=== PATIENT | female | born 1945 | race Caucasian/White ===

== ENCOUNTER 2016-06-01 19:22 | Emergency (ER) | payer MEDICARE, OTHER ==
[2016-06-01] MEDS ORDERED: ONDANSETRON 4 MG TAB.RAPDIS PO ONE (19:31)
--- NOTE | 2016-06-01 19:31 | ER Document Report ---
ED Medical Screen (RME) - General Stated Complaint: NAUSEA,VOMITING,DIARRHEA Notes: patient is a 70 year old female p/ w since 7am. n/v/d all today no hematemesis or hematochezia patient with BRBPR due to hemorrhoids on prolia I have greeted and performed a rapid initial assessment of this patient. A comprehensive ED assessment and evaluation of the patient, analysis of test results and completion of the medical decision making process will be conducted by additional ED providers.
[2016-06-01 19:50] LABS: HEMATOCRIT 43.3 % (36.0-47.0); HEMOGLOBIN 14.2 g/dL (12.0-15.5); HGB HCT DIFFERENCE -0.7; MEAN CORPUSCULAR HEMOGLOBIN 28.3 pg (27.0-33.4); MEAN CORPUSCULAR HGB CONC 32.8 g/dL (32.0-36.0); MEAN CORPUSCULAR VOLUME 86 fl (80-97); RED BLOOD COUNT 5.02 10^6/uL (3.72-5.28); RED CELL DISTRIBUTION WIDTH 12.6 % (11.5-14.0); WHITE BLOOD COUNT 10.3 10^3/uL (4.0-10.5)
[2016-06-01] MEDS ORDERED: NORMAL SALINE 1000 ML 1,000 ML IV ONE ×2 (19:57→21:47)
[2016-06-01] MEDS ORDERED: OXYCODONE-ACETAMINOPHEN 5-325 MG TABLET PO ONE (19:57)
[2016-06-01] MEDS ORDERED: PROMETHAZINE HCL 25 MG TABLET PO ONE (19:57)
--- NOTE | 2016-06-01 19:59 | ER Document Report ---
ED GI/ - General Chief Complaint: Flu Symptoms Stated Complaint: NAUSEA,VOMITING,DIARRHEA Time seen by provider: 19:50 Notes: Patient is a 70-year-old female that comes emergency department for chief complaint of nausea, vomiting, and diarrhea that started today. She states she has had about 20 episodes of each. His blood in vomit, she states she has had a tiny amount of bright red blood in her diarrhea, she states this is common and she has known hemorrhoids. Patient denies fever. Patient has sick contacts (her daughter specifically) with similar symptoms. Patient has had colonoscopies and states these were normal. Patient denies any raw food, denies any recent antibiotics. Patient reports PMH of hemorrhoids, osteoporosis , and hemorrhoid surgery, she denies any other PMH. TRAVEL OUTSIDE OF THE [place] IN LAST 30 DAYS: No - Related Data Allergies/Adverse Reactions: amitriptyline Allergy (Verified 06/01/16 19:29) aspirin Allergy (Verified 06/01/16 21:17) azithromycin Allergy (Verified 06/01/16 19:29) Influenza Virus Vaccines Allergy (Verified 06/01/16 21:17) Penicillins Allergy (Verified 06/01/16 19:29) Sulfa (Sulfonamide Antibiotics) Allergy (Verified 06/01/16 19:29) Katec Allergy (Uncoded 06/01/16 21:17) Home Medications: Current Home Medications Denosumab [Prolia 60 mg/ml Syr 1 ml] 60 mg SUBCUT Q180D 06/01/16 [History] Past Medical History - General Information source: Patient - Social History Smoking Status: Never Smoker Drug Abuse: None Lives with: Family Family History: Reviewed & Not Pertinent Patient has suicidal ideation: No Patient has homicidal ideation: No Renal/ Medical History: Denies: Hx Peritoneal Dialysis Review of Systems - Review of Systems Constitutional: See HPI EENT: No symptoms reported Cardiovascular: No symptoms reported Respiratory: No symptoms reported Gastrointestinal: See HPI Genitourinary: No symptoms reported Female Genitourinary: No symptoms reported Musculoskeletal: No symptoms reported Skin: No symptoms reported Hematologic/Lymphatic: No symptoms reported Neurological/Psychological: No symptoms reported Physical Exam - Vital signs Vitals: Temp Pulse Resp BP Pulse Ox 98.1 F 98 16 131/57 H 97 06/01/16 19:27 06/01/16 19:27 06/01/16 19:27 06/01/16 19:27 06/01/16 19:27 Interpretation: Normal - General General appearance: Appears well, Alert In distress: None - HEENT Head: Normocephalic, Atraumatic Eyes: Normal Conjunctiva: Normal Extraocular movements intact: Yes Eyelashes: Normal Pupils: PERRL Sinus: Normal Nasal: Normal Mouth/Lips: Normal Mucous membranes: Dry - Very dry mucous membranes Pharynx: Normal Neck: Normal - Respiratory Respiratory status: No respiratory distress. No: Respiratory distress, Depressed respirations, Tachypnea Chest status: Nontender Breath sounds: Normal. No: Decreased air movement Chest palpation: Normal - Cardiovascular Rhythm: Regular. No: Tachycardia Heart sounds: Normal auscultation, S1 appreciated, S2 appreciated Murmur: No - Abdominal Inspection: Normal Distension: No distension Bowel sounds: Normal Tenderness: Tender - Mild generalized tenderness, slightly increased in the left upper and lower quadrants, nonspecific, no guarding, no rebound tenderness Organomegaly: No organomegaly - Back Back: Normal, Nontender - Extremities General upper extremity: Normal inspection, Nontender, Normal color, Normal ROM , Normal temperature General lower extremity: Normal inspection, Nontender, Normal color, Normal ROM , Normal temperature, Normal weight bearing. 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 History shows elevated BUN, very slight elevation of ALT/AST. Urinalysis shows some ketones, shows trace leukocyte esterase and shows white blood cells. Patient was not able to urinate until she was given IV fluids, patient given 2 L normal saline. After fluids, medications, patient states she feels great. Abdomen is nonspecific with only mild and generalized tenderness, low suspicion of acute abdomen. Patient has sick contacts with reported viral symptoms. Treating symptoms, discussed return precautions, patient and daughter state understanding and agreement. - Vital Signs Vital signs: Temp Pulse Resp BP Pulse Ox 98.9 F 75 18 115/55 L 96 06/01/16 23:48 06/01/16 23:48 06/01/16 23:48 06/01/16 23:48 06/01/16 23:48 - Laboratory Result Diagrams: 06/01/16 19:35 06/01/16 19:35 Laboratory results interpreted by me: 06/01/16 06/01/16 06/01/16 19:35 19:35 22:47 Seg Neuts % (Manual) 91 H Lymphocytes % (Manual) 5 L Abs Neuts (Manual) 9.4 H Sodium 146.0 H Chloride 108 H BUN 47 H Glucose 155 H AST 52 H ALT 72 H Urine Ketones 20 H Ur Leukocyte Esterase SMALL H Urine Ascorbic Acid 40 H Discharge - Discharge Clinical Impression: Nausea vomiting and diarrhea, Dehydration Condition: Stable Disposition: HOME, SELF-CARE Additional Instructions: Symptoms, workup, and examination are most consistent with a viral syndrome. Take Phenergan for nausea, start with clear fluids in progress to bland diet, take Cipro antibiotic to prevent developing urinary tract infection. Take the [place] and Zofran given tonight for symptoms as needed. Follow-up with primary care. Return to the emergency department for any concerning or worsening symptoms including uncontrollable vomiting, abdominal swelling or severe pain, fever, or any other concerning or worsening symptoms. Prescriptions: Ciprofloxacin HCl [Cipro 500 mg Tablet] 500 mg PO BID #10 tablet Promethazine HCl [Phenergan 25 mg Tablet] 1 - 2 tab PO Q6H PRN #15 tablet PRN Reason:
[2016-06-01 20:08] LABS: ALANINE AMINOTRANSFERASE 72 U/L (9-52); ALBUMIN 4.4 g/dL (3.5-5.0); ALKALINE PHOSPHATASE 76 U/L (38-126); ANION GAP 14 (5-19); ASPARTATE AMINO TRANSFERASE 52 U/L (14-36); BILIRUBIN,TOTAL 0.7 mg/dL (0.2-1.3); BLOOD UREA NITROGEN 47 mg/dL (7-20); CALCIUM 9.1 mg/dL (8.4-10.2); CARBON DIOXIDE 24 mmol/L (22-30); CHLORIDE 108 mmol/L (98-107); CREATININE RESULT 0.84 mg/dL (0.52-1.25); GLUCOSE 155 mg/dL (75-110); LIPASE 166.4 U/L (23-300); POTASSIUM 4.2 mmol/L (3.6-5.0); TOTAL PROTEIN 7.7 g/dL (6.3-8.2)
[2016-06-01 20:12] LABS: BASOPHILS % (MANUAL) 0 % (0-2); EOSINOPHILS % (MANUAL) 0 % (0-6); LYMPHOCYTES % (MANUAL) 5 % (13-45); TOTAL CELLS COUNTED 100
[2016-06-01 20:13] LABS: TOXIC GRANULATION SLIGHT
[2016-06-01 23:06] LABS: APPEARANCE,URINE CLEAR; BILIRUBIN,URINE NEGATIVE (NEGATIVE); GLUCOSE, URINE NEGATIVE (NEGATIVE); KETONES,URINE 20 mg/dL (NEGATIVE); LEUKOCYTE ESTERASE,URINE SMALL (NEGATIVE); NITRITE,URINE NEGATIVE (NEGATIVE); PROTEIN,URINE NEGATIVE (NEGATIVE); URINE SPECIFIC GRAVITY 1.019; UROBILINOGEN,URINE NEGATIVE mg/dL (<2.0)
[2016-06-01] MEDS ORDERED: DIPHENHYDRAMINE HCL 50 MG/ML VIAL IV ONE (23:15)
[2016-06-01] MEDS ORDERED: ONDANSETRON ODT 4 MG TAB (6 TAB/DSPK) PO PRN (23:30)
[2016-06-01] MEDS ORDERED: HYDROCODONE/ACETAMINOPHEN 5-325 MG 6 TAB/DSPK PO PRN (23:30)
[2016-06-02 00:10] VITALS: BP 115/55
== END 2016-06-01 23:48 | disposition home or self-care (01) ==
LOC: ER 19:22
DX: R11.2 Nausea with vomiting, unspecified (principal); R19.7 Diarrhea, unspecified; E86.0 Dehydration; Z88.6 Allergy status to analgesic agent; Z88.3 Allergy status to other anti-infective agents; Z88.2 Allergy status to sulfonamides; Z88.0 Allergy status to penicillin
CPT/HCPCS: 99283; 96361; 96374; 36415; 87086; 83690; 85025; 80053; 81001; J1200; A9270 ×4; J7030